=== PATIENT | female | born 1945 | race American Indian/Alaskan Native ===

== ENCOUNTER 2016-11-12 15:44 | Outpatient (CLI) | payer MEDICARE ==
[2016-11-12 16:59] LABS: Blood Urea Nitrogen 15 mg/dL (7-17)
--- NOTE | 2016-11-12 18:41 | Cat Scan Report ---
FINAL REPORT EXAM: CT LUMBAR SPINE WO CON HISTORY: SEVERE DISK DISEASE WITH STENOSIS TECHNIQUE: CT examination of the lumbar spine without IV contrast PRIORS: None. FINDINGS: Large body habitus limits the examination. Increased soft tissue attenuates the x-ray beam and degrades image quality. Vertebral compression fracture: None Spondylolysis: None Anterolisthesis: L4-5 trace Retrolisthesis: None Disc narrowing: L3-4 slight, L4-5 moderate, L5-S1 severe. Degenerative gas formation is present in the discs from L3 through S1 Soft tissue windows suggest: Diffuse disc bulge: L2-3 slight, L3-4 moderate, L4-5 moderate, L5-S1 moderate containing degenerative gas Focal disc protrusion: Superimposed central and right paracentral at L5-S1 containing degenerative gas. Although poorly defined, approximate dimension is 9 mm AP x 18 mm transverse. Central canal stenosis: L5-S1 slight, L4-5 moderate, L3-4 slight Degenerative hypertrophic facet arthrosis, ligamentum flavum hypertrophy, vertebral endplate hypertrophy, and disc bulge contribute to neural foraminal stenosis. Soft tissue windows suggest neural foraminal stenosis as follows: Right neural foraminal stenosis: L2-3 slight, L3-4 moderate, L4-5 severe, L5-S1 severe Left neural foraminal stenosis: L2-3 slight, L3-4 severe, L4-5 severe, L5-S1 severe Atherosclerotic calcification in the abdominal aorta. IMPRESSION: No acute fracture or dislocation Trace degenerative anterolisthesis at L4-5 without spondylolysis Multilevel extensive degenerative change, disc narrowing, diffuse disc bulge, central canal stenosis, and bilateral neural foraminal stenosis Suggestion of superimposed central and right paracentral disc protrusion at L5-S1 containing degenerative gas
--- NOTE | 2016-11-13 15:12 | Magnetic Resonance Report ---
MRI LUMBAR SPINE WITH AND WITHOUT CONTRAST INDICATION: Severe disc disease with stenosis. COMPARISON: Lumbar spine CT from earlier today and 12/12/2011 radiographs. FINDINGS: Axial and sagittal T1 and T2-weighted MRI of the lumbar spine obtained before and after 20 mL Multihance intravenously. Normal vertebral body stature and marrow signal except for mild L4 and L5 vertebral body edema and mild adjacent endplate irregularity/possible Schmorl's node. Approximately 2-3 mm anterolisthesis of L4 over L5. Normal conus medullaris terminates behind L1. Non-aneurysmal abdominal aorta. Normal paraspinal soft tissues. On the obtained axial images: T11-T12 suggests disc desiccation/narrowing. T12-L1 and L1-L2 appear unremarkable. Approximate 8 mm L1 hemangioma superiorly. AP thecal sac caliber approximately 1.4 cm. L2-L3 demonstrates loss of disc signal, though disc height grossly maintained. Slight diffuse disc bulge. AP thecal sac caliber approximately 0.9 cm, somewhat flattened/effaced anterolaterally on both sides, axial image 25. Approximately 1.2 cm L3 vertebral body hemangioma on the right. L3-L4 demonstrates loss of the signal and at least mild disc narrowing. Moderate bilateral facet effusions and mild spurring noted. Thecal sac appearance fairly similar to the level above as on axial image 19. Mild bilateral neural foraminal narrowing/undercutting. L4-L5 now demonstrates abnormal, T2 increased disc signal with degenerative changes/vacuum phenomenon known previously. Abnormal patchy enhancement along the disc also noted both anteriorly and posteriorly as well as in the adjacent vertebral bodies as on sagittal series 8. Mild diffuse disc bulge effaces/flattens and somewhat elevates the thecal sac anteriorly. Bilateral ligamentum flavum hypertrophy and moderate facet arthropathy also noted. AP thecal sac caliber is 0.8 cm, axial series 6, image 13. Bilateral neural foraminal narrowing approaching/contacting exiting bilateral L4 nerve roots may also be present. L5-S1 demonstrates moderate to severe disc narrowing with mild diffuse disc bulge noted predominantly ventral epidural. Thecal sac somewhat attenuated by this level. Mild bilateral facet arthropathy. CONCLUSION: 1. MRI imaging findings suspicious for L4-L5 discitis/osteomyelitis in an appropriate setting. Please correlate. 2. Multilevel degenerative changes, again noted greatest lower lumbar, as detailed above. Thank you for the opportunity to participate in this patient's care.
== END 2016-11-12 15:45 | disposition home or self-care (01) ==
LOC: CT 15:44
PROVIDERS: ATTEND Orthopaedic Surgery Orthopaedic Trauma
DX: M48.06 Spinal stenosis, lumbar region (principal); M51.36 Other intervertebral disc degeneration, lumbar region; M47.816 Spondylosis without myelopathy or radiculopathy, lumbar region; M24.28 Disorder of ligament, vertebrae; I70.0 Atherosclerosis of aorta
CPT/HCPCS: 36415; 72131; 72158; 82565; 84520; A9577